=== PATIENT | female | born 1985 | race Caucasian/White ===

== ENCOUNTER 2016-12-08 22:23 | Emergency (ER) | payer OTHER ==
[2016-12-08 22:28] VITALS: RESP 16
[2016-12-08] MEDS ORDERED: SODIUM CHLORIDE 0.9% 1,000 ML IV STA (22:55)
[2016-12-08] MEDS ORDERED: ONDANSETRON 4 MG/2 ML VIAL IVP STA (22:56)
[2016-12-08] MEDS ORDERED: DICYCLOMINE 20 MG TAB PO STA (22:56)
--- NOTE | 2016-12-08 23:01 | ED ---
Syncope HPI - General Chief Complaint: Syncope Stated Complaint: syncope Time Seen by Provider: 12/08/16 22:36 Source: patient, RN notes reviewed Mode of arrival: wheelchair Limitations: no limitations - History of Present Illness Initial Comments: This a 31-year-old female presents emergency Department chief complaint of syncopal episode. Patient states that she has not felt well all day. She states that she's had nausea vomiting diarrhea. She states that she is barely ate or drank anything. She states that she got up quickly and states that she remembers feeling very dizzy And she no she woke up on the ground. states that she didn't appear to have passed out as she hit the wall and was on the ground. He states that she was never responsive for what seemed like an associate attorney but was only less than a minute. Patient was awake just not coherent. Patient has no specific complaints other than some abdominal cramping at this time. She denies chest pain, headache, dizziness, shortness breath at this time. Patient states that she's not had no syncopal episodes in the past and denies any fever, chills. She states that her son had similar GI symptoms the last few days. - Related Data Home Medications Medication Instructions Recorded Confirmed Levonest 1 tab PO DAILY 12/08/16 12/08/16 Loperamide HCl [Imodium] 2 mg PO ONCE PRN 12/08/16 12/08/16 Allergies Allergy/AdvReac Type Severity Reaction Status Date / Time No Known Allergies Allergy Verified 12/08/16 23:04 Review of Systems ROS Statement: Those systems with pertinent positive or pertinent negative responses have been documented in the HPI. ROS Other: All systems not noted in ROS Statement are negative. Past Medical History Past Medical History: No Reported History Additional Past Medical History / Comment(s): hx anemia History of Any Multi-Drug Resistant Organisms: None Reported Past Surgical History: Section Additional Past Surgical History / Comment(s): lipoma removal, patient had a D& C for spontaneous miscarriage. Past Anesthesia/Blood Transfusion Reactions: No Reported Reaction Past Psychological History: No Psychological Hx Reported Smoking Status: Never smoker Past Alcohol Use History: Rare Past Drug Use History: None Reported - Past Family History Mother Family Medical History: No Reported History General Exam Limitations: no limitations General appearance: alert, in no apparent distress Head exam: Present: atraumatic, normocephalic, normal inspection Eye exam: Present: normal appearance, PERRL, EOMI. Absent: scleral icterus, conjunctival injection, periorbital swelling ENT exam: Present: normal exam, normal oropharynx, mucous membranes moist Neck exam: Present: normal inspection, full ROM. Absent: tenderness, meningismus, lymphadenopathy Respiratory exam: Present: normal lung sounds bilaterally. Absent: respiratory distress, wheezes, rales, rhonchi, stridor Cardiovascular Exam: Present: regular rate, normal rhythm, normal heart sounds. Absent: systolic murmur, diastolic murmur, rubs, gallop, clicks GI/Abdominal exam: Present: soft, tenderness (Mild diffuse), normal bowel sounds. Absent: distended, guarding, rebound, rigid Neurological exam: Present: alert, oriented X3, CN II-XII intact, reflexes normal. Absent: motor sensory deficit Skin exam: Present: warm, dry, intact, normal color. Absent: rash Course Vital Signs 12/08/16 12/08/16 12/08/16 22:25 22:58 23:50 Temperature 99.5 F 99.3 F Pulse Rate 108 H Pulse Rate [ 74 Left Sitting Pulse Oximetery ] Pulse Rate [ 85 Left Standing Pulse Oximetery ] Pulse Rate [ 84 Left Supine Pulse Oximetery ] Respiratory 16 Rate Blood Pressure 116/63 Blood Pressure 112/57 [Left Arm Sitting] Blood Pressure 113/58 [Left Arm Standing] Blood Pressure 110/58 [Left Arm Supine] O2 Sat by Pulse 98 Oximetry EKG Findings - EKG Comments: EKG Findings:: EKG performed at 23:08 no sinus rhythm with prolonged QT rate of 85, ND interval 162 QRS duration 70 QT/QTC 398/473 Medical Decision Making - Medical Decision Making 36-year-old female presented for syncopal episode. Patient's lab work is essentially unremarkable. Patient does feel much improved after IV fluids. Patient symptoms are related to vasovagal episode. Patient will follow with PCP return parameters were discussed. - Lab Data Result diagrams: 12/08/16 23:19 12/08/16 23:19 Lab Results 12/08/16 12/08/16 12/08/16 Range/Units 23:19 23:19 23:19 WBC 9.4 (3.8-10.6) k/uL RBC 4.49 (3.80-5.40) m/uL Hgb 12.9 (11.4-16.0) gm/dL Hct 38.9 (34.0-46.0) % MCV 86.7 (80.0-100.0) fL MCH 28.7 (25.0-35.0) pg MCHC 33.1 (31.0-37.0) g/dL RDW 13.7 (11.5-15.5) % Plt Count 264 (150-450) k/uL Neutrophils % 88 % Lymphocytes % 8 % Monocytes % 3 % Eosinophils % 1 % Basophils % 0 % Neutrophils # 8.3 H (1.3-7.7) k/uL Lymphocytes # 0.7 L (1.0-4.8) k/uL Monocytes # 0.3 (0-1.0) k/uL Eosinophils # 0.1 (0-0.7) k/uL Basophils # 0.0 (0-0.2) k/uL PT (9.0-12.0) sec INR (<1.2) APTT (22.0-30.0) sec Sodium 137 (137-145) mmol/L Potassium 3.6 (3.5-5.1) mmol/L Chloride 105 (98-107) mmol/L Carbon Dioxide 21 L (22-30) mmol/L Anion Gap 11 mmol/L BUN 13 (7-17) mg/dL Creatinine 0.70 (0.52-1.04) mg/dL Est GFR (MDRD) Af Amer >60 (>60 ml/min/1.73 sqM) Est GFR (MDRD) Non-Af >60 (>60 ml/min/1.73 sqM) Glucose 105 H (74-99) mg/dL Calcium 8.3 L (8.4-10.2) mg/dL Magnesium 1.7 (1.6-2.3) mg/dL Total Bilirubin 1.7 H (0.2-1.3) mg/dL AST 23 (14-36) U/L ALT 22 (9-52) U/L Alkaline Phosphatase 59 (38-126) U/L Total Creatine Kinase 70 (30-135) U/L CK-MB (CK-2) 0.4 (0.0-2.4) ng/mL CK-MB (CK-2) Rel Index 0.6 Troponin I <0.012 (0.000-0.034) ng/mL Total Protein 6.6 (6.3-8.2) g/dL Albumin 3.9 (3.5-5.0) g/dL Urine Color Urine Appearance (Clear) Urine pH (5.0-8.0) Ur Specific [place] (1.001-1.035) Urine Protein (Negative) Urine Glucose (UA) (Negative) Urine Ketones (Negative) Urine Blood (Negative) Urine Nitrite (Negative) Urine Bilirubin (Negative) Urine Urobilinogen (<2.0) mg/dL Ur Leukocyte Esterase (Negative) 12/08/16 12/08/16 Range/Units 23:19 23:43 WBC (3.8-10.6) k/uL RBC (3.80-5.40) m/uL Hgb (11.4-16.0) gm/dL Hct (34.0-46.0) % MCV (80.0-100.0) fL MCH (25.0-35.0) pg MCHC (31.0-37.0) g/dL RDW (11.5-15.5) % Plt Count (150-450) k/uL Neutrophils % % Lymphocytes % % Monocytes % % Eosinophils % % Basophils % % Neutrophils # (1.3-7.7) k/uL Lymphocytes # (1.0-4.8) k/uL Monocytes # (0-1.0) k/uL Eosinophils # (0-0.7) k/uL Basophils # (0-0.2) k/uL PT 10.7 (9.0-12.0) sec INR 1.1 (<1.2) APTT 23.3 (22.0-30.0) sec Sodium (137-145) mmol/L Potassium (3.5-5.1) mmol/L Chloride (98-107) mmol/L Carbon Dioxide (22-30) mmol/L Anion Gap mmol/L BUN (7-17) mg/dL Creatinine (0.52-1.04) mg/dL Est GFR (MDRD) Af Amer (>60 ml/min/1.73 sqM) Est GFR (MDRD) Non-Af (>60 ml/min/1.73 sqM) Glucose (74-99) mg/dL Calcium (8.4-10.2) mg/dL Magnesium (1.6-2.3) mg/dL Total Bilirubin (0.2-1.3) mg/dL AST (14-36) U/L ALT (9-52) U/L Alkaline Phosphatase (38-126) U/L Total Creatine Kinase (30-135) U/L CK-MB (CK-2) (0.0-2.4) ng/mL CK-MB (CK-2) Rel Index Troponin I (0.000-0.034) ng/mL Total Protein (6.3-8.2) g/dL Albumin (3.5-5.0) g/dL Urine Color Yellow Urine Appearance Clear (Clear) Urine pH 5.0 (5.0-8.0) Ur Specific [place] 1.026 (1.001-1.035) Urine Protein Trace H (Negative) Urine Glucose (UA) Negative (Negative) Urine Ketones Trace H (Negative) Urine Blood Negative (Negative) Urine Nitrite Negative (Negative) Urine Bilirubin Negative (Negative) Urine Urobilinogen <2.0 (<2.0) mg/dL Ur Leukocyte Esterase Negative (Negative) Disposition Clinical Impression: Vasovagal syncope Disposition: HOME SELF-CARE Condition: Stable Instructions: Syncope (ED) Additional Instructions: Please return to the Emergency Department if symptoms worsen or any other concerns. Referrals: Ravi Peck MD [Primary Care Provider] - 1-2 days Time of Disposition: 00:17
[2016-12-08 23:27] LABS: Basophils % (A) 0 %; CH 29.4; Eosinophils # (A) 0.1 k/uL (0-0.7); Eosinophils % (A) 1 %; HCT 38.9 % (34.0-46.0); HDW 2.41; HGB 12.9 gm/dL (11.4-16.0); Luc # (Auto) 0.07; Luc % (Auto) 1; Lymphocytes # (A) 0.7 k/uL (1.0-4.8); Lymphocytes % (A) 8 %; MCH 28.7 pg (25.0-35.0); MCHC 33.1 g/dL (31.0-37.0); MCV 86.7 fL (80.0-100.0); Mean Platelet Volume 7.8; Monocytes # (A) 0.3 k/uL (0-1.0); Monocytes % (A) 3 %; Neutrophils # (A) 8.3 k/uL (1.3-7.7); Neutrophils % (A) 88 %; RBC 4.49 m/uL (3.80-5.40); RDW 13.7 % (11.5-15.5); WBC 9.4 k/uL (3.8-10.6); WBC (Perox) 10.39
[2016-12-08 23:44] LABS: ALT 22 U/L (9-52); AST 23 U/L (14-36); Alkaline Phosphatase 59 U/L (38-126); Anion Gap 11 mmol/L; Blood Urea Nitrogen 13 mg/dL (7-17); Calcium 8.3 mg/dL (8.4-10.2); Carbon Dioxide 21 mmol/L (22-30); Chloride 105 mmol/L (98-107); Glucose 105 mg/dL (74-99); Magnesium 1.7 mg/dL (1.6-2.3); Non-African American GFR(MDRD) >60 (>60 ml/min/1.73 sqM); Potassium 3.6 mmol/L (3.5-5.1); Sodium 137 mmol/L (137-145); Total Bilirubin 1.7 mg/dL (0.2-1.3); Total Protein 6.6 g/dL (6.3-8.2)
[2016-12-08 23:47] LABS: Creatine Kinase 70 U/L (30-135); INR 1.1 (<1.2); Partial Thromboplastin Time 23.3 sec (22.0-30.0); Prothrombin Time 10.7 sec (9.0-12.0)
[2016-12-08 23:58] LABS: Appearance,Urine Clear (Clear); Bilirubin,Urine Negative (Negative); Glucose,Urine (UA) Negative (Negative); Ketones,Urine Trace (Negative); Leukocyte Esterase,Urine Negative (Negative); Nitrite,Urine Negative (Negative); Protein,Urine Trace (Negative); Specific Gravity,Urine 1.026 (1.001-1.035); UA Billing (MACRO vs. MICRO) CHEM; Urobilinogen,Urine <2.0 mg/dL (<2.0)
[2016-12-09 00:01] LABS: Creatine Kinase MB 0.4 ng/mL (0.0-2.4); Troponin I <0.012 ng/mL (0.000-0.034)
[2016-12-09 00:28] VITALS: BP 107/59; PULSE 71; TEMP 98.5
== END 2016-12-09 00:27 | disposition home or self-care (01) ==
LOC: EC 22:23
DX: R55 Syncope and collapse (principal); R11.2 Nausea with vomiting, unspecified; R10.9 Unspecified abdominal pain; R19.7 Diarrhea, unspecified; R42 Dizziness and giddiness; Z79.3 Long term (current) use of hormonal contraceptives
CPT/HCPCS: 99284; 96374; 96361; 36415; 93005; 80053; 82550; 82553; 83735; 84484; 85025; 85610; 85730; 81003; J2405

== ENCOUNTER 2018-10-27 05:47 | Inpatient (IN) | payer OTHER ==
[2018-10-21 14:57] VITALS: BMI 31.8
--- NOTE | 2018-10-26 07:37 | P.HPOB ---
History of Present Illness H&P Date: 10/26/18 Chief Complaint: Repeat section This patient is a pleasant 33-year-old 3 para 1 female estimated date of confinement 11/03/2018 estimated gestational age 39 weeks who presents to labor and delivery for requested repeat section. Patient had a previous section with her first baby secondary to failure to progress and has requested a repeat this . Patient's has been complicated by gestational diabetes which has been under excellent control with diet. Patient's been followed by Dr. Corrales. Patient's had serial growth ultrasounds and nonstress testing which has been normal. otherwise has been uncomplicated. Review of Systems Gastrointestinal: Reports heartburn Genitourinary: Reports Menstruation: Reports amenorrhea Past Medical History Past Medical History: No Reported History Additional Past Medical History / Comment(s): hx anemia, STATES GESTATIONAL DIABETES, NO RX History of Any Multi-Drug Resistant Organisms: None Reported Past Surgical History: Section Additional Past Surgical History / Comment(s): lipoma removal, patient had a D&C for spontaneous miscarriage. COLONOSCOPY Past Anesthesia/Blood Transfusion Reactions: No Reported Reaction Past Psychological History: No Psychological Hx Reported Smoking Status: Never smoker Past Alcohol Use History: None Reported Past Drug Use History: None Reported - Past Family History Mother Family Medical History: Cancer Medications and Allergies Home Medications Medication Instructions Recorded Confirmed Type Iron 5 ml PO DAILY 10/21/18 History Pnv,Calcium 72/Iron/Folic Acid 1 each PO DAILY 10/21/18 10/21/18 History [ Plus Tablet] Allergies Allergy/AdvReac Type Severity Reaction Status Date / Time No Known Allergies Allergy Verified 10/21/18 14:52 Exam - OBG Physical Exam Abdomen: bowel sounds normal, no diffuse tenderness, no bruit present, no guarding noted, no hepatomegaly, no splenomegaly, no mass Vulva: both: normal Vagina: normal moisture, no discharge Cervix: no lesion (Cervix in the office previously was closed.), no discharge Uterus: enlarged (Fundal height 40 cm.) Results blood work shows she is A positive, rubella immune, RPR nonreactive, hepatitis B negative, HIV is nonreactive, Glucola was 134 with an abnormal 3 hour gtt. Ultrasounds have been normal, group B strep was positive. Assessment and Plan Assessment: This is a pleasant 33-year-old 3 para 1 female 39-0/7 weeks gestation who is admitted to labor and delivery for elective repeat section. Land is repeat low transverse section. Patient I discussed the surgery and risks including risks of infection, bleeding, possible injury bowel, bladder, vessels, and other organs. Patient also understands risk of DVT and pulmonary embolism. All the patient's questions are answered and a written consent is obtained. (1) 39 weeks gestation of Status: Acute Code(s): Z3A.39 - 39 WEEKS GESTATION OF SNOMED Code(s): 38720571 (2) Previous delivery affecting Status: Acute Code(s): O34.219 - MATERNAL CARE FOR UNSP TYPE SCAR FROM PREVIOUS DEL SNOMED Code(s): 362926370 (3) Gestational diabetes mellitus (GDM) Status: Acute Code(s): O24.419 - GESTATIONAL DIABETES MELLITUS IN , UNSP CONTROL SNOMED Code(s): 12686781
[2018-10-27] MEDS ORDERED: CITRIC ACID-SODIUM CITRATE 15 ML CUP PO ONE (06:10)
[2018-10-27] MEDS ORDERED: LACTATED RINGERS 1,000 ML IV ONE (06:10)
[2018-10-27] MEDS: LACTATED RINGERS 1,000 ML IV SCH ×2 (06:23→10:59)
[2018-10-27 06:24] LABS: Anisocytosis Slight; Basophils % (A) 0 %; Eosinophils # (A) 0.2 k/uL (0-0.7); Eosinophils % (A) 3 %; HCT 40.9 % (34.0-46.0); HGB 13.3 gm/dL (11.4-16.0); Lymphocytes # (A) 1.7 k/uL (1.0-4.8); Lymphocytes % (A) 20 %; MCH 28.8 pg (25.0-35.0); MCHC 32.4 g/dL (31.0-37.0); MCV 88.8 fL (80.0-100.0); Mean Platelet Volume 9.3; Monocytes # (A) 0.4 k/uL (0-1.0); Monocytes % (A) 5 %; Neutrophils % (A) 71 %; Platelet Count 201 k/uL (150-450); RBC 4.61 m/uL (3.80-5.40); RDW 16.7 % (11.5-15.5); WBC 8.5 k/uL (3.8-10.6)
[2018-10-27 06:26] LABS: Glucose,Whole Blood 73 mg/dL (75-99)
[2018-10-27] MEDS ORDERED: KETOROLAC 30 MG/ML 1 ML VIAL ONE (07:50)
[2018-10-27] MEDS ORDERED: ONDANSETRON 4 MG/2 ML VIAL ONE (07:50)
[2018-10-27] MEDS ORDERED: PHENYLEPHRINE-0.9% NACL SYG 1 MG/10 ML SYRINGE ONE (07:50)
[2018-10-27] MEDS ORDERED: MORPHINE SULFATE (PF) 0.3 MG/0.3 ML SYR ONE (07:50)
[2018-10-27] MEDS ORDERED: NALBUPHINE 10 MG/ML (1 ML AMP) ONE (07:50)
[2018-10-27] MEDS ORDERED: OXYTOCIN 10 UNIT/ML 1 ML VIAL ONE (07:50)
[2018-10-27] MEDS ORDERED: diphenhydrAMINE 50 MG/ML 1 ML VIAL IVP PRN (08:32)
[2018-10-27] MEDS ORDERED: ACETAMINOPHEN TAB 325 MG TAB PO PRN (08:32)
[2018-10-27] MEDS ORDERED: IBUPROFEN 600 MG TAB PO PRN (08:32)
[2018-10-27] MEDS ORDERED: NALOXONE 0.4 MG/ML 1 ML VIAL IV PRN ×2 (08:32→09:37)
[2018-10-27] MEDS ORDERED: SIMETHICONE 80 MG CHEWABLE PO PRN (08:32)
[2018-10-27] MEDS ORDERED: ONDANSETRON 4 MG/2 ML VIAL IVP PRN ×2 (08:32→09:37)
[2018-10-27] MEDS ORDERED: HYDROcodone/APAP 5-325MG 1 EACH TAB PO PRN (08:32)
[2018-10-27] MEDS ORDERED: diphenhydrAMINE 25 MG CAP PO PRN (08:32)
[2018-10-27] MEDS ORDERED: ZOLPIDEM 5 MG TAB PO PRN (08:32)
[2018-10-27] MEDS ORDERED: METOCLOPRAMIDE 5 MG/ML 2 ML VIAL IVP PRN (08:32)
[2018-10-27] MEDS ORDERED: LANOLIN CREAM 5 GM TUBE TOPICAL PRN (08:32)
--- NOTE | 2018-10-27 08:39 | P.OP ---
Date of Procedure: 10/27/18 Preoperative Diagnosis: #1: 39-0/7 weeks . #2: Previous section desires repeat. #3: Gestational diabetes Postoperative Diagnosis: Same Procedure(s) Performed: Repeat low transverse section Anesthesia: spinal Surgeon: Gerry Smith Management Trainee Marketing #1: Bhavin [place] Estimated Blood Loss (ml): 600 Pathology: none sent Condition: stable Disposition: floor Indications for Procedure: Please see dictated H&P for intimate details of this patient's admission. Brief summary this is a pleasant 33-year-old 3 para 1 female estimated gestational age 39 weeks who presents to labor and delivery for elective repeat section. Patient understands this surgery and risks including risks of infection, bleeding, possible injury to bowel, bladder, vessels, and/or other organs. All the patient's questions are answered and a written consent is obtained. Operative Findings: This patient is taken to the operating room. She subsequently has had a Keenan catheter placed to straight drain. Patient is sat up and spinal anesthetic is administered without incident. With an adequate level of anesthesia she has abdominal prep and drape. Scalpels then taken the previous Pfannenstiel incision is incised. A second scalpel is taken down to the fascia the fascia scored with a knife. Fascial incision extended bilaterally using the Noriega scissors. Fascia is then dissected sharply off the rectus muscles. Rectus muscles are the peritoneum identified and entered sharply. Peritoneal incision extended superior and appears of difficulty. Bladder blade is then placed. Bladder peritoneum taken sharply off the lower uterine segment. Scalpels and taken a low transverse uterine incision is made. Using a hemostat I then bluntly entered the uterine cavity is loss of clear fluid. Uterine inc ision is extended bluntly. The is then guided through the incision with fundal pressure and the head is delivered. Also nares are bulb suctioned. There is no evidence of a nuchal cord. We then have deliver the rest this 's body. Is a vigorous viable female infant Apgars are 9 and 10 delivery time is 0804 hrs. After delivery of the , the umbilical cord is doubly clamped and cut and appears to be trivascular. The placenta is then manually extracted intact. The uterus is then externalized and the uterine incision demarcated with Grewal clamps. Uterine incision then closed using 0 Vicryl in a running locked fashion 2 layers. Again excellent hemostasis is noted. Excess fluid is removed from the abdomen and pelvis. Uterus placed back into the abdomen. Uterus tubes and ovaries appear normal for term gestation. Parietal peritoneum was then closed using 0 Vicryl running fashion. The rectus muscles reapproximated using 0 Vicryl interrupted fashion. Fascia is then closed using 0 PDS. Fascial incision is intact and hemostatic. Subcutaneous tissues and closed using a 3-0 Vicryl. Skin is and closed using romel. All counts are correct 3. There are no complications. Infant and mother are taken to the birthing suite in satisfactory condition.
[2018-10-27] MEDS ORDERED: LACTATED RINGERS 1,000 ML IV SCH (08:45)
[2018-10-27] MEDS ORDERED: OXYTOCIN 20 UNITS/1000 ML NS 1,000 ML IV SCH (08:45)
[2018-10-27] MEDS ORDERED: KETOROLAC 30 MG/ML 1 ML VIAL IVP PRN (09:37)
[2018-10-27 13:15] LABS: Hemoglobin A1C 5.5 % (4.0-6.0)
[2018-10-27] MEDS ORDERED: SENNOSIDES-DOCUSATE SODIUM 1 EACH TAB PO SCH (20:00)
[2018-10-27] MEDS: DOCUSATE ORAL SOLN 100 MG/10 ML CUP PO SCH (21:24)
[2018-10-28] MEDS: LACTATED RINGERS 1,000 ML IV SCH (01:54)
[2018-10-28] MEDS: KETOROLAC 30 MG/ML 1 ML VIAL IVP PRN ×2 (02:32→08:10)
[2018-10-28 07:04] LABS: Basophils % (A) 0 %; Eosinophils # (A) 0.1 k/uL (0-0.7); Eosinophils % (A) 1 %; HCT 34.8 % (34.0-46.0); HGB 11.1 gm/dL (11.4-16.0); Lymphocytes # (A) 1.2 k/uL (1.0-4.8); Lymphocytes % (A) 9 %; MCH 27.8 pg (25.0-35.0); MCV 86.9 fL (80.0-100.0); Mean Platelet Volume 8.7; Monocytes # (A) 0.5 k/uL (0-1.0); Monocytes % (A) 4 %; Neutrophils # (A) 10.9 k/uL (1.3-7.7); Neutrophils % (A) 84 %; Platelet Count 185 k/uL (150-450); RBC 4.01 m/uL (3.80-5.40); RDW 15.6 % (11.5-15.5); WBC 12.9 k/uL (3.8-10.6)
[2018-10-28] MEDS: DOCUSATE ORAL SOLN 100 MG/10 ML CUP PO SCH ×2 (08:17→20:39)
--- NOTE | 2018-10-28 10:31 | P.PN ---
Progress Note - Text Anesthesia POD 1. Patient is status post section under spinal anesthesia with intra-thecal preservative free morphine 300 g. Minimal pruritus, good post-op analgesia, and no headache or other complications. Patient received Toradol approximately 12 hours post- section to good effect.
[2018-10-28] MEDS: IBUPROFEN ORAL SUSP 2,400 MG/120 ML BOTTLE PO PRN ×2 (14:03→20:46)
[2018-10-28] MEDS: ACETAMINOPHEN ORAL SUSP 160 MG/5 ML CUP PO PRN ×2 (18:17→23:29)
[2018-10-29] MEDS: IBUPROFEN ORAL SUSP 2,400 MG/120 ML BOTTLE PO PRN (03:59)
[2018-10-29] MEDS: ACETAMINOPHEN ORAL SUSP 160 MG/5 ML CUP PO PRN (06:25)
--- NOTE | 2018-10-29 10:12 | P.PNOBGPC ---
Subjective - Subjective Patient reports: Reports appetite normal, Reports voiding normally, Reports pain well controlled, Reports ambulating normally [place]: doing well Objective - Vital Signs Latest vital signs: Vital Signs Temp Pulse Resp BP Pulse Ox 10/29/18 00:00 97.8 F 67 16 117/63 95 10/28/18 16:00 97.8 F 85 16 102/65 Intake and Output 10/28/18 10/29/18 10/29/18 22:59 06:59 14:59 Other: # Voids 1 1 - Exam Lungs: bilateral: normal Chest: Normal S1, Normal S2 Extremities: Present: normal Abdomen: Present: normal appearance, soft. Absent: distention, tenderness Incision: Present: normal, dry, intact Uterus: Present: normal, firm Assessment and Plan Assessment: Postoperative day #2. Patient is resting without complaints and wishes to go ho me. Vital signs are stable and she is afebrile. Uterus is firm nontender and she has normal lochia. Incision is intact and dry. My impression this is a normal course. Plan is to continue postoperative care and discharge home later today. (1) 39 weeks gestation of Current Visit: No Status: Acute Code(s): Z3A.39 - 39 WEEKS GESTATION OF SNOMED Code(s): 60516362 (2) Previous delivery affecting Current Visit: No Status: Acute Code(s): O34.219 - MATERNAL CARE FOR UNSP TYPE SCAR FROM PREVIOUS DEL SNOMED Code(s): 709106684 (3) Gestational diabetes mellitus (GDM) Current Visit: No Status: Acute Code(s): O24.419 - GESTATIONAL DIABETES MELLITUS IN , UNSP CONTROL SNOMED Code(s): 92608980
[2018-10-29 11:01] VITALS: BP 126/53; PULSE 56; RESP 14; TEMP 98.3
[2018-10-29] MEDS: DOCUSATE ORAL SOLN 100 MG/10 ML CUP PO SCH (11:03)
== END 2018-10-29 11:00 | disposition home or self-care (01) | DRG 788 ==
LOC: 4FBP 05:47
PROVIDERS: ADMIT Obstetrics & Gynecology; ATTEND Obstetrics & Gynecology
PROC: 10D00Z1 Extraction of Products of Conception, Low, Open Approach (ICD-10-PCS; principal; 2018-10-27 08:00)
DX: O34.211 Maternal care for low transverse scar from previous cesarean delivery (principal); O24.429 Gestational diabetes mellitus in childbirth, unspecified control; O99.72 Diseases of the skin and subcutaneous tissue complicating childbirth; L29.9 Pruritus, unspecified; Z37.0 Single live birth; Z3A.39 39 weeks gestation of pregnancy; Z85.9 Personal history of malignant neoplasm, unspecified
CPT/HCPCS: 83036; 85025; 86850; 86900; 86901

== ENCOUNTER → 2020-01-30 | Outpatient (CLI) | payer OTHER ==
--- NOTE | 2020-01-30 14:54 | MM ---
Reason for exam: screening (asymptomatic). Baseline mammogram. History: Family history of breast cancer in maternal grandmother at age 80. Taking hormonal contraceptives for 16 years. Physical Findings: Nurse did not find any significant physical abnormalities on exam. MG 3D Screening Mammo W/Cad Bilateral CC and MLO view(s) were taken. The breast tissue is heterogeneously dense. This may lower the sensitivity of mammography. There is no discrete abnormality. These results were verbally communicated with the patient and result sheet given to the patient on 01/30/20. ASSESSMENT: Negative, BI-RAD 1 RECOMMENDATION: Routine screening mammogram of both breasts at age 39.
== END | disposition home or self-care (01) ==
LOC: RADMAMWWP 14:04
PROVIDERS: ATTEND Obstetrics & Gynecology
DX: Z12.31 Encounter for screening mammogram for malignant neoplasm of breast (principal)
CPT/HCPCS: 77063; 77067

== ENCOUNTER 2021-02-28 14:46 | Emergency (ER) | payer OTHER ==
[2021-02-28] MEDS ORDERED: SODIUM CHLORIDE 0.9% 1,000 ML IV STA (17:07)
[2021-02-28] MEDS ORDERED: ONDANSETRON 4 MG/2 ML VIAL IVP STA (17:07)
--- NOTE | 2021-02-28 17:33 | ED ---
General Adult HPI - General Chief complaint: Fever Stated complaint: Weakness, nausea Time Seen by Provider: 02/28/21 16:42 Source: patient, RN notes reviewed Mode of arrival: ambulatory Limitations: no limitations - History of Present Illness Initial comments: Patient is a 35-year-old female presenting to the emergency department with concerns for worsening infection. Patient was treated for cellulitis on her nose last week, she completed a 7 day course of Bactrim, was using an antibiotic ointment. Patient states she was feeling improvement, and then started feeling worse towards the end of last week, she went to local urgent care who gave her a shot of antibiotics, she is unsure the name. Patient states over the past few days she's not been able to eat or drink, she's been having nausea and it feels very anxious. She denies any pain, no nasal pain, no facial pain, no facial swelling. She states she's been having intermittent fevers at home. She denies a cough or any respiratory complaints. Patient feels like she could have a worsening infection somewhere. She did go to her PCPs office yesterday who had blood drawn, she is unaware of these results. Patient has no further complaints to a. Upon arrival to the ER, her pulse is 119 over she is very anxious, rest of vitals normal. She denies any chest pain or shortness of breath. - Related Data Home Medications Medication Instructions Recorded Confirmed En[place]-28 1 tab PO DAILY 02/28/21 02/28/21 Mupirocin 2% Oint [Bactroban 2% 1 applic TOPICAL TID 02/28/21 02/28/21 Oint] Previous Rx's Medication Instructions Recorded Ondansetron Odt [Zofran Odt] 4 mg PO Q8HR PRN #10 tab 02/28/21 Allergies Allergy/AdvReac Type Severity Reaction Status Date / Time amoxicillin Allergy Nausea Verified 02/28/21 18:09 sulfamethoxazole AdvReac Nausea & Verified 02/28/21 18:09 [From Bactrim] Vomiting & Diarrhea trimethoprim [From Bactrim] AdvReac Nausea & Verified 02/28/21 18:09 Vomiting & Diarrhea Review of Systems ROS Statement: Those systems with pertinent positive or pertinent negative responses have been documented in the HPI. ROS Other: All systems not noted in ROS Statement are negative. Past Medical History Past Medical History: No Reported History Additional Past Medical History / Comment(s): hx anemia, gestational diabetes 07/2018 History of Any Multi-Drug Resistant Organisms: None Reported Past Surgical History: Section Additional Past Surgical History / Comment(s): lipoma removal, patient had a D&C for spontaneous miscarriage. Past Anesthesia/Blood Transfusion Reactions: No Reported Reaction Past Psychological History: No Psychological Hx Reported Smoking Status: Never smoker Past Alcohol Use History: Rare Past Drug Use History: None Reported - Past Family History Mother Family Medical History: Cancer General Exam - General Exam Comments Initial Comments: GENERAL: Patient is well-developed and well-nourished. Patient is nontoxic and in no acute distress, does appear anxious. HEAD: Atraumatic, normocephalic. EYES: Pupils equal round and reactive to light, extraocular movements intact, sclera anicteric, conjunctiva are normal. Eyelids were unremarkable. ENT: Nares patent, oropharynx clear without exudates. Moist mucous membranes. NECK: Normal range of motion, supple without lymphadenopathy or JVD. LUNGS: Unlabored respirations. Breath sounds clear to auscultation bilaterally and equal. No wheezes rales or rhonchi. HEART: Regular rate and rhythm without murmurs, rubs or gallops. ABDOMEN: Soft, nontender, normoactive bowel sounds. No guarding, no rebound. No masses appreciated. MUSCULOSKELETAL: Normal extremities with adequate strength and normal range of motion, no pitting or edema. No clubbing or cyanosis. NEUROLOGICAL: Patient is alert and oriented x 3. SKIN: Warm, Dry, normal turgor, no rashes or lesions noted. Limitations: no limitations Course Vital Signs 02/28/21 02/28/21 02/28/21 15:01 18:39 21:20 Temperature 98.5 F 98.6 F Pulse Rate 119 H 97 92 Respiratory 20 16 18 Rate Blood Pressure 128/85 117/71 128/79 O2 Sat by Pulse 97 98 98 Oximetry Medical Decision Making - Medical Decision Making Patient is a 35-year-old female here with concerns of worsening infection. She was treated for cellulitis of her nose last week with a 7 day course of Bactrim which she finished 3 days ago. She has no facial pain no facial swelling. She denies pain anywhere. She's been having nausea. Her vital signs are stable except for some tachycardia but I feel like this is from her being so anxious. She did have blood drawn yesterday by her primary care office, these results were all within normal limits. Checked a urine, hCG is negative. Patient received some fluids and Zofran has been resting comfortably. I discussed with her that her symptoms are most likely related to being on Bactrim and side effects from this. I will send her home with some Zofran for any additional nausea. I did test patient for Covid, patient does not await for the results. I will call her if they are positive. I recommended following up with her primary care. He is agreeable to this plan of care. Patient stable for discharge. Patient's Covid test did come back positive, patient will still the ER, I did tell her this. She agrees to monoclonal antibodies. She received these without adverse side effects. Patient is stable for discharge. - Lab Data Lab Results 02/28/21 02/28/21 02/28/21 Range/Units 17:27 17:27 18:33 Urine Color Light Yellow Urine Appearance Clear (Clear) Urine pH 7.0 (5.0-8.0) Ur Specific [place] 1.006 (1.001-1.035) Urine Protein Negative (Negative) Urine Glucose (UA) Negative (Negative) Urine Ketones 1+ H (Negative) Urine Blood Negative (Negative) Urine Nitrite Negative (Negative) Urine Bilirubin Negative (Negative) Urine Urobilinogen <2.0 (<2.0) mg/dL Ur Leukocyte Esterase Negative (Negative) Urine HCG, Qual Not Detected (Not Detectd) Coronavirus (PCR) Detected A (Not Detectd) Disposition Clinical Impression: Medication side effects, Nausea, COVID-19 Disposition: HOME SELF-CARE Condition: Stable Instructions (If sedation given, give patient instructions): Coronavirus Disease 2019 (COVID-19), Acute Nausea and Vomiting (ED) Additional Instructions: Please return to the Emergency Department if symptoms worsen or any other concerns. May take Zofran for any additional nausea. Increase your fluids and diet as tolerated. Follow-up with your primary care as needed. Prescriptions: Ondansetron Odt [Zofran Odt] 4 mg PO Q8HR PRN #10 tab PRN Reason: Nausea Is patient prescribed a controlled substance at d/c from ED?: No Referrals: Zabrina Pickett MD [Primary Care Provider] - 1-2 days Time of Disposition: 18:42
[2021-02-28 17:47] LABS: Appearance,Urine Clear (Clear); Bilirubin,Urine Negative (Negative); Blood,Urine Negative (Negative); Color,Urine Light Yellow; Glucose,Urine (UA) Negative (Negative); Ketones,Urine 1+ (Negative); Leukocyte Esterase,Urine Negative (Negative); Nitrite,Urine Negative (Negative); Protein,Urine Negative (Negative); Specific Gravity,Urine 1.006 (1.001-1.035); Urobilinogen,Urine <2.0 mg/dL (<2.0)
[2021-02-28 18:40] VITALS: TEMP 98.6
[2021-02-28] MEDS ORDERED: ALPRAZolam 0.25 MG TAB PO STA (18:57)
[2021-02-28] MEDS ORDERED: SODIUM CHLORIDE 0.9% 50 ML IVPB ONE (19:15)
[2021-02-28] MEDS ORDERED: SOTROVIMAB (EUA) 500 MG in SODIUM CHLORIDE 0.9% 100 ML IVPB ONE (19:15)
[2021-02-28] MEDS ORDERED: LORazepam 2 MG/ML INJ IV STA (20:00)
[2021-02-28 21:21] VITALS: BP 128/79; PULSE 92; RESP 18
== END 2021-02-28 21:21 | disposition home or self-care (01) ==
LOC: EC 14:46
DX: U07.1 COVID-19 (principal); R11.0 Nausea; Z88.1 Allergy status to other antibiotic agents; Z88.2 Allergy status to sulfonamides
CPT/HCPCS: 99283; 96374; 96375; 96361 ×2; 81003; 81025; 87635; J2060; J2405; Q0247

== ENCOUNTER 2022-06-11 06:40 | Emergency (ER) | payer OTHER ==
[2022-06-11 06:48] VITALS: RESP 18
[2022-06-11 07:40] VITALS: TEMP 98.8
[2022-06-11 07:58] LABS: Basophils % (A) 0 %; Eosinophils # (A) 0.1 k/uL (0-0.7); Eosinophils % (A) 1 %; HCT 40.8 % (34.0-46.0); HGB 13.3 gm/dL (11.4-16.0); Lymphocytes # (A) 1.6 k/uL (1.0-4.8); Lymphocytes % (A) 20 %; MCH 29.2 pg (25.0-35.0); MCHC 32.7 g/dL (31.0-37.0); MCV 89.3 fL (80.0-100.0); Mean Platelet Volume 7.6; Monocytes # (A) 0.2 k/uL (0-1.0); Monocytes % (A) 3 %; Neutrophils # (A) 5.8 k/uL (1.3-7.7); Neutrophils % (A) 75 %; Platelet Count 305 k/uL (150-450); RBC 4.56 m/uL (3.80-5.40); RDW 13.3 % (11.5-15.5); WBC 7.8 k/uL (3.8-10.6)
[2022-06-11 08:08] LABS: ALT 23 U/L (4-34); AST 24 U/L (14-36); African American GFR (CKD) >90 (>60 ml/min/1.73 sqM); Albumin 4.7 g/dL (3.5-5.0); Alkaline Phosphatase 47 U/L (38-126); Amylase 83 U/L (30-110); Anion Gap 10 mmol/L; Blood Urea Nitrogen 11 mg/dL (7-17); Calcium 9.2 mg/dL (8.4-10.2); Carbon Dioxide 28 mmol/L (22-30); Chloride 103 mmol/L (98-107); Glucose 92 mg/dL (74-99); Non-African American GFR(CKD) >90 (>60 ml/min/1.73 sqM); Sodium 141 mmol/L (137-145); Total Bilirubin 1.5 mg/dL (0.2-1.3); Total Protein 7.6 g/dL (6.3-8.2)
--- NOTE | 2022-06-11 08:39 | ED ---
ENT HPI - General Chief complaint: Dental/Oral Stated complaint: Face and neck swelling Time Seen by Provider: 06/11/22 06:48 Source: patient, RN notes reviewed Mode of arrival: ambulatory Limitations: no limitations - History of Present Illness Initial comments: 36 female presents emergency Department chief complaint right-sided facial, jaw pain. Patient states she's been having recurrent issues the right side of her face since end of last year. Patient has been seen by PCP, ENT, an fundraising sale representative. Patient states she's been on several antibiotics most recently site. Patient states she woke up with right-sided jaw pain worse and last 2 days. She has no teeth it's bothering her. She states when this initially started a diagnosed her with tooth infection which a root canal she's had recent CTs with no other acute findings. - Related Data Home Medications Medication Instructions Recorded Confirmed Enpresse-28 1 tab PO W/SUPPER 02/28/21 06/11/22 Fluconazole 200 mg PO DAILY 06/11/22 06/11/22 Previous Rx's Medication Instructions Recorded Clindamycin Oral Soln [Cleocin 300 mg PO QID #800 ml 06/11/22 Oral Soln] Allergies Allergy/AdvReac Type Severity Reaction Status Date / Time amoxicillin Allergy Anaphylaxis Verified 06/11/22 07:24 clavulanic acid Allergy Anaphylaxis Verified 06/11/22 07:24 [From Augmentin] sulfamethoxazole AdvReac Nausea & Verified 06/11/22 07:24 [From Bactrim] Vomiting & Diarrhea trimethoprim [From Bactrim] AdvReac Nausea & Verified 06/11/22 07:24 Vomiting & Diarrhea Review of Systems ROS Statement: Those systems with pertinent positive or pertinent negative responses have been documented in the HPI. ROS Other: All systems not noted in ROS Statement are negative. Past Medical History Past Medical History: No Reported History Additional Past Medical History / Comment(s): hx anemia, gestational diabetes 07/2018 History of Any Multi-Drug Resistant Organisms: None Reported Past Surgical History: Section Additional Past Surgical History / Comment(s): lipoma removal, patient had a D&C for spontaneous miscarriage. Past Anesthesia/Blood Transfusion Reactions: No Reported Reaction Past Psychological History: No Psychological Hx Reported Smoking Status: Never smoker Past Alcohol Use History: Rare Past Drug Use History: None Reported - Past Family History Mother Family Medical History: Cancer General Exam Limitations: no limitations General appearance: alert, in no apparent distress Head exam: Present: atraumatic, normocephalic, normal inspection Eye exam: Present: normal appearance, PERRL, EOMI. Absent: scleral icterus, conjunctival injection, periorbital swelling ENT exam: Present: mucous membranes moist, TM's normal bilaterally, normal external ear exam. Absent: normal oropharynx Neck exam: Present: normal inspection, tenderness, full ROM. Absent: meningismus, lymphadenopathy Respiratory exam: Present: normal lung sounds bilaterally. Absent: respiratory distress, wheezes, rales, rhonchi, stridor Cardiovascular Exam: Present: regular rate, normal rhythm, normal heart sounds. Absent: systolic murmur, diastolic murmur, rubs, gallop, clicks Course Vital Signs 06/11/22 06/11/22 06/11/22 06:43 07:20 09:05 Temperature 98.3 F 98.8 F Pulse Rate 103 H 64 63 Respiratory 18 18 18 Rate Blood Pressure 129/89 118/77 125/74 O2 Sat by Pulse 98 100 100 Oximetry Medical Decision Making - Medical Decision Making Was pt. sent in by a medical professional or institution (, PA, COMMUNICATIONS COORDINATOR, urgent care, hospital, or group home...) When possible be specific @ -No Did you speak to anyone other than the patient for history (EMS, parent, family, police, friend...)? What history was obtained from this source @ -No Did you review nursing and triage notes (agree or disagree)? Why? @ -I reviewed and agree with nursing and triage notes Were old charts reviewed (outside hosp., previous admission, EMS record, old EKG, old radiological studies, urgent care reports/EKG's, group home records)? Report findings @ -Reviewed prior CT and labs Differential Diagnosis (chest pain, altered mental status, abdominal pain women, abdominal pain men, vaginal bleeding, weakness, fever, dyspnea, syncope, headache, dizziness, GI bleed, back pain, seizure, CVA, palpatations, mental health, musculoskeletal)? @ -Dental infection, salivary issue, parotitis, EKG interpreted by me (3pts min.). @ -As above X-rays interpreted by me (1pt min.). @ -None done CT interpreted by me (1pt min.). @ -None done U/S interpreted by me (1pt. min.). @ -None done What testing was considered but not performed or refused? (CT, X-rays, U/S, labs)? Why? @ -None What meds were considered but not given or refused? Why? @ -None Did you discuss the management of the patient with other professionals (professionals i.e. , PA, COMMUNICATIONS COORDINATOR, lab, RT, psych nurse, hospital social worker, route contractor, teacher, aoc operations intelligence officer, cyanide case hardener)? Give summary @ -No Was smoking cessation discussed for >3mins.? @ -No Was critical care preformed (if so, how long)? @ -No Were there social determinants of health that impacted care today? How? (Homelessness, low income, unemployed, alcoholism, drug addiction, transportation, low edu. Level, literacy, decrease access to med. care, longterm, rehab)? @ -No Was there de-escalation of care discussed even if they declined (Discuss DNR or withdrawal of care, Hospice)? DNR status @ -No What co-morbidities impacted this encounter? (DM, HTN, Smoking, COPD, CAD, Cancer, CVA, ARF, Chemo, Hep., AIDS, mental health diagnosis, sleep apnea, morbid obesity)? @ -None Was patient admitted / discharged? Hospital course, mention meds given and route, prescriptions, significant lab abnormalities, going to OR and other pertinent info. @ -Discharged patient had normal laboratory studies we discussed possibility of underlying infection and follow-up with infectious disease as she's had recurrent issues. Patient was placed on clindamycin return parameters were discussed. Undiagnosed new problem wit ucertain prognosis? @ -[No] Drug Therapy requiring intensive monitoring for toxicity (Heparin, Nitr, nsulin, Cardizem)? @ -[No] Wer ay procedures done? @ -[o] Diagosis/symptom? @ -[ facial infection Acute, or Chronic or Acue on Chronic? @ acute lt] Uncomplicated (without systemic symptoms) or Complicate (systeic symptoms)? @ uncomplicated] Sideefects of treatment? @ -[No] Exacerbation, Progression, o Svere Exacerbation? @ -[No] Poses a threat to life or bodily function? How? (Chest pain, [place], [place], pneumonia, PE, COPD, DKA, ARF, appy, cholecystitis, CVA, Diverticulitis, Homicidal, Suicidal, threat to staff... and llcritical care pts) @ -[No] - Lab Data Result diagrams: 06/11/22 07:35 06/11/22 07:35 Lab Results 06/11/22 06/11/22 Range/Units 07:35 07:35 WBC 7.8 (3.8-10.6) k/uL RBC 4.56 (3.80-5.40) m/uL Hgb 13.3 (11.4-16.0) gm/dL Hct 40.8 (34.0-46.0) % MCV 89.3 (80.0-100.0) fL MCH 29.2 (25.0-35.0) pg MCHC 32.7 (31.0-37.0) g/dL RDW 13.3 (11.5-15.5) % Plt Count 305 (150-450) k/uL MPV 7.6 Neutrophils % 75 % Lymphocytes % 20 % Monocytes % 3 % Eosinophils % 1 % Basophils % 0 % Neutrophils # 5.8 (1.3-7.7) k/uL Lymphocytes # 1.6 (1.0-4.8) k/uL Monocytes # 0.2 (0-1.0) k/uL Eosinophils # 0.1 (0-0.7) k/uL Basophils # 0.0 (0-0.2) k/uL Sodium 141 (137-145) mmol/L Potassium 4.0 (3.5-5.1) mmol/L Chloride 103 (98-107) mmol/L Carbon Dioxide 28 (22-30) mmol/L Anion Gap 10 mmol/L BUN 11 (7-17) mg/dL Creatinine 0.80 (0.52-1.04) mg/dL Est GFR (CKD-EPI)AfAm >90 (>60 ml/min/1.73 sqM) Est GFR (CKD-EPI)NonAf >90 (>60 ml/min/1.73 sqM) Glucose 92 (74-99) mg/dL Calcium 9.2 (8.4-10.2) mg/dL Total Bilirubin 1.5 H (0.2-1.3) mg/dL AST 24 (14-36) U/L ALT 23 (4-34) U/L Alkaline Phosphatase 47 (38-126) U/L Total Protein 7.6 (6.3-8.2) g/dL Albumin 4.7 (3.5-5.0) g/dL Amylase 83 (30-110) U/L Disposition Clinical Impression: Facial swelling, Sialadenitis Disposition: HOME SELF-CARE Condition: Stable Instructions (If sedation given, give patient instructions): Sialoadenitis (ED) Additional Instructions: Please return to the Emergency Department if symptoms worsen or any other concerns. Prescriptions: Clindamycin Oral Soln [Cleocin Oral Soln] 300 mg PO QID #800 ml Is patient prescribed a controlled substance at d/c from ED?: No Referrals: Zabrina Pickett MD [Primary Care Provider] - 1-2 days Simona Hackett MD [STAFF PHYSICIAN] - 1-2 days Time of Disposition: 08:39
[2022-06-11 09:07] VITALS: BP 125/74; PULSE 63
== END 2022-06-11 09:05 | disposition home or self-care (01) ==
LOC: EC 06:40
DX: K11.20 Sialoadenitis, unspecified (principal); Z88.0 Allergy status to penicillin; Z88.1 Allergy status to other antibiotic agents; Z88.2 Allergy status to sulfonamides; Z88.8 Allergy status to other drugs, medicaments and biological substances
CPT/HCPCS: 36415; 80053; 82150; 85025; 87040; 99283

== ENCOUNTER → 2023-09-14 | Outpatient (CLI) | payer OTHER ==
--- NOTE | 2023-09-24 16:15 | MR ---
EXAMINATION TYPE: MR ankle RT wo con DATE OF EXAM: 09/14/2023 COMPARISON: None available HISTORY: Rt ankle pain, swelling anterior/lateral side Multiplanar, multisequence images of the right ankle were acquired without contrast. FINDINGS: LIGAMENTS: Anterior talofibular, calcaneofibular, posterior talofibular ligaments are normal. Deltoid ligamentous complex is normal. Tibiofibular syndesmosis is normal. Spring ligament is normal. Lisfranc ligament normal. PERONEAL TENDONS: Normal. FLEXOR TENDONS: Normal. EXTENSOR TENDONS: Normal. ACHILLES TENDON: Normal. BONES/CARTILAGE/JOINT: Bone marrow signal is normal. Articular cartilage is normal. No joint effusion. SOFT TISSUES: Ganglion cyst projecting from the dorsal lateral aspect of the subtalar joint which measures approxim ately 17 x 17 x 17 mm in largest dimensions, projects superolaterally and drapes over the anterior pr ocess of the talus Kager's fat pad is normal. Sinus tarsi is normal. Plantar fascia is normal. Neurovascular structures are normal. IMPRESSION: 1. Large irregularly-shaped ganglion cyst at the dorsal lateral aspect of the subtalar joint 2. Intact anterior talofibular ligament.
== END | disposition home or self-care (01) ==
LOC: RADMRIMAIN 10:08
PROVIDERS: ATTEND Podiatrist Foot & Ankle Surgery
DX: B35.1 Tinea unguium (principal); S93.491A Sprain of other ligament of right ankle, initial encounter; D17.23 Benign lipomatous neoplasm of skin and subcutaneous tissue of right leg; M67.471 Ganglion, right ankle and foot